=== PATIENT | female | born 1990 | race Two or more races ===

== ENCOUNTER 2019-02-13 21:40 | Emergency (ER) | payer MEDICAID, OTHER ==
[~2019-02-13] VITALS: Ht 152.4 cm; Wt 104.3 kg
[2019-02-14] MEDS ORDERED: IBUPROFEN 800 MG TAB PO ONE (02:00)
[2019-02-14] MEDS ORDERED: HYDROcodone-ACET 10/325MG TAB PO ONE (02:00)
[2019-02-14 02:14] VITALS: BP 134/68
== END 2019-02-14 02:25 | disposition home or self-care (01) ==
LOC: ER 21:40
DX: G44.209 Tension-type headache, unspecified, not intractable (principal)

== ENCOUNTER 2022-08-24 07:05 | Emergency (ER) | payer MEDICAID, OTHER ==
[~2022-08-24] VITALS: Ht 152.4 cm; Wt 108.0 kg
[2022-08-24 07:35] VITALS: BP 109/66
[2022-08-24 07:42] LABS: Basophils # (auto) 0.1 10 ^3/uL (0-0.2); Hemoglobin 13.2 g/dL (12.2-16.2); Monocytes # (auto) 0.5 10 ^3/uL (0-1.3)
[2022-08-24 07:44] LABS: Urine Bacteria FEW /hpf (None Seen); Urine Blood TRACE /uL (Negative); Urine Mucus FEW (None Seen); Urine WBC 2 /hpf (0 - 5)
[2022-08-24 07:45] LABS: Basophils % (auto) 0.5 % (0.0-2.0); Eosinophils # (auto) 0.1 10 ^3/uL (0-0.8); Eosinophils % (auto) 1.2 % (0.0-7.0); Hematocrit 37.5 % (36.0-46.0); Lymphocytes # (auto) 2.5 10 ^3/uL (0.4-5.4); Lymphocytes % (auto) 21.6 % (10.0-50.0); Mean Corpuscular Hemoglobin 27.3 pg (28.0-32.0); Mean Corpuscular Hgb Conc. 35.3 g/dL (32.0-36.0); Mean Corpuscular Volume 77.3 fL (80.0-100.0); Monocytes % (auto) 4.3 % (0.0-12.0); Neutrophils # (auto) 8.4 10 ^3/uL (1.6-8.6); Neutrophils % (auto) 72.4 % (37.0-80.0); Nucleated Red Blood Cells % 0.1 %; Red Blood Cells 4.85 10^6/uL (4.0-5.20); Red Cell Distribution Width 13.1 % (11.8-14.3); White Blood Cell 11.6 10^3/uL (4.4-10.8)
[2022-08-24] MEDS ORDERED: NITR-87 PO (08:41)
== END 2022-08-24 08:44 | disposition home or self-care (01) ==
LOC: ER 07:05
DX: O20.0 Threatened abortion (principal); O23.41 Unspecified infection of urinary tract in pregnancy, first trimester; N39.0 Urinary tract infection, site not specified; Z3A.13 13 weeks gestation of pregnancy
CPT/HCPCS: 36415; 76801; 81001; 84702; 85025

== ENCOUNTER 2022-09-29 15:52 | Emergency (ER) | payer MEDICAID ==
[~2022-09-29] VITALS: Ht 152.4 cm; Wt 107.0 kg
[~2022-09-29 15:52] MED LIST: NITR-87 PO
[2022-09-29 16:33] VITALS: BP 113/42
[2022-09-29 16:41] LABS: Basophils # (auto) 0 10 ^3/uL (0-0.2); Basophils % (auto) 0.4 % (0.0-2.0); Eosinophils # (auto) 0.3 10 ^3/uL (0-0.8); Eosinophils % (auto) 2.4 % (0.0-7.0); Hematocrit 37.1 % (36.0-46.0); Hemoglobin 12.7 g/dL (12.2-16.2); Lymphocytes # (auto) 2.7 10 ^3/uL (0.4-5.4); Lymphocytes % (auto) 24.2 % (10.0-50.0); Mean Corpuscular Hemoglobin 27.4 pg (28.0-32.0); Mean Corpuscular Hgb Conc. 34.3 g/dL (32.0-36.0); Mean Corpuscular Volume 79.7 fL (80.0-100.0); Monocytes # (auto) 0.7 10 ^3/uL (0-1.3); Monocytes % (auto) 6.3 % (0.0-12.0); Neutrophils # (auto) 7.3 10 ^3/uL (1.6-8.6); Neutrophils % (auto) 66.7 % (37.0-80.0); Nucleated Red Blood Cells % 0.1 %; Red Blood Cells 4.66 10^6/uL (4.0-5.20); Red Cell Distribution Width 13.5 % (11.8-14.3); White Blood Cell 10.9 10^3/uL (4.4-10.8)
[2022-09-29 17:00] LABS: Urine Bacteria NONE SEEN /hpf (None Seen); Urine Blood TRACE /uL (Negative); Urine Specific Gravity 1.015 (1.001-1.035); Urine WBC <1 /hpf (0 - 5)
[2022-09-29 17:03] LABS: Calcium 8.7 mg/dL (8.5-10.1); Potassium 3.5 mmol/L (3.5-5.1)
[2022-09-29 17:06] LABS: Bilirubin, Total 0.2 mg/dL (0.2-1.0); Total Protein 6.9 g/dL (6.4-8.2)
== END 2022-09-29 19:38 | disposition left against medical advice (07) ==
LOC: ER 15:52
DX: O46.92 Antepartum hemorrhage, unspecified, second trimester (principal); R10.2 Pelvic and perineal pain; Z3A.18 18 weeks gestation of pregnancy
CPT/HCPCS: 36415; 76805; 76817; 80053; 81001; 84702; 85025

== ENCOUNTER 2024-12-27 23:19 | Inpatient (IN) | payer MEDICAID ==
[~2024-12-27] VITALS: Ht 153 cm; Wt 109.0 kg
--- NOTE | 2024-12-28 01:51 | ED.PDOC ---
GI ASSESSMENT HPI Comments [age] year old female presents to the ED with a chief complaint of epigastric abdominal pain with associated radiation to the upper back with nausea,vomiting, and diarrhea. Patient states she reported eating pork 30 minutes prior to arriving to the ED, has since found no alleviating factors at this time. Patient notes she is Zepbound for weight loss, and has been on it for the past 4 months. Pt denies any fever, dysuria, sick contacts or other symptoms. Chief Complaint: Abdominal Pain Time Seen by MD: 01:48 Primary Care Provider: YOSEPH Reviewed Notes: Nurses Notes, Medications, Allergies Allergies: Coded Allergies: NO KNOWN ALLERGIES (Unverified , 01/30/13) Home Meds Active Scripts Nitrofurantoin Monohydrate Mac (Macrobid) 100 Mg Cap, 100 MG PO BID, #20 CAP Prov:CHIDI MAHONEY 08/24/22 Information Source: Patient Mode of Arrival: Ambulatory Timing: Minutes Duration: Since onset, Minutes Prehospital treatment: None Quality: None Vomitus: Watery Stool: Normal Severity: Moderate Recent: None Recent Hx of: None Pain Location: Diffuse Modifying Factors: Food Associated sign and symptoms: Nausea, Vomiting, Abdominal Pain Past Medical History PAST MEDICAL HISTORY: Denies 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 Moist mucous membranes.) Neck: Full Range of Motion, Normal Inspection Respiratory: Lungs Clear, No Accessory Muscle Use, No Respiratory Distress, Normal Breath Sounds Cardiovascular: No Edema, No JVD, Regular Rate/Rhythm Breast Exam: Deferred Gastrointestinal: Epigastric, Soft, Tenderness Genitalia: Deferred Pelvic: Deferred Rectal: Deferred Extremities: Normal inspection, Normal range of motion, Non-tender, No pedal edema Neurologic: Alert (Oriented x4), Normal Affect, Normal Mood, Other (Ambulatory) Cerebellar Function: NOT DONE Reflexes: NOT DONE Skin: Dry, Normal Color, Warm Lymphatic: NOT DONE Was a procedure done? Was a procedure done?: No GI differential Dx Differential Diagnosis: Appendicitis, Cholecystitis, Constipation, Gastritis/PUD, Gastroenteritis, Pancreatitis, UTI, Dehydration, Diabetes/ DKA, Electrolyte Imbalance, Food Poisoning, , Bacterial, Viral, Ischemic Bowel, Stress Ulcer, Kidney Stone X-Ray, Labs, Meds, VS Vital Signs Date Time Temp Pulse Resp B/P (MAP) Pulse Ox O2 Delivery O2 Flow Rate FiO2 12/28/24 04:17 69 18 130/78 12/28/24 03:34 97.4 62 18 129/70 (89) 98 97.4 12/28/24 03:34 62 18 12/27/24 23:21 98.3 97 20 137/72 96 98.3 Lab Test 12/28/24 03:27 12/28/24 02:23 12/28/24 01:10 Range/Units Troponin I High Sensitivity Pending < 3 L </=34 ng/L White Blood Count 16.1 H 4.4-10.8 10^3/uL Red Blood Count 5.43 H 4.0-5.20 10^6/uL Hemoglobin 14.9 12.2-16.2 g/dL Hematocrit 43.9 36.0-46.0 % Mean Corpuscular Volume 80.7 80.0-100.0 fL Mean Corpuscular Hemoglobin 27.4 L 28.0-32.0 pg Mean Corpuscular Hemoglobin Concent 33.9 32.0-36.0 g/dL Red Cell Distribution Width 14.2 11.8-14.3 % Platelet Count 307 140-450 10^3/uL Mean Platelet Volume 9.0 6.9-10.8 fL Neutrophils (%) (Auto) 84.7 H 37.0-80.0 % Lymphocytes (%) (Auto) 10.1 10.0-50.0 % Monocytes (%) (Auto) 4.8 0.0-12.0 % Eosinophils (%) (Auto) 0.1 0.0-7.0 % Basophils (%) (Auto) 0.3 0.0-2.0 % Neutrophils # (Auto) 13.6 H 1.6-8.6 10 ^3/uL Lymphocytes # (Auto) 1.6 0.4-5.4 10 ^3/uL Monocytes # (Auto) 0.8 0-1.3 10 ^3/uL Eosinophils # (Auto) 0 0-0.8 10 ^3/uL Basophils # (Auto) 0 0-0.2 10 ^3/uL Nucleated Red Blood Cells 0.0 % Sodium Level 140 136-145 mmol/L Potassium Level 4.0 3.5-5.1 mmol/L Chloride Level 105 98-107 mmol/L Carbon Dioxide Level 27 20-31 mmol/L Anion Gap 8 5-15 Blood Urea Nitrogen 8 L 9-23 mg/dL Creatinine 0.71 0.550-1.02 mg/dL Glomerular Filtration Rate Calc 114 >90 mL/min BUN/Creatinine Ratio 11.3 10.0-20.0 Serum Glucose 102 74-106 mg/dL Calcium Level 9.0 8.7-10.4 mg/dL Total Bilirubin 0.8 0.2-1.0 mg/dL Aspartate Amino Transferase (AST) 180 H 13-40 U/L Alanine Aminotransferase (ALT) 89 H 7-40 U/L Alkaline Phosphatase 154 H 46-116 U/L Total Protein 7.5 5.7-8.2 g/dL Albumin 4.5 3.2-4.8 g/dL Lipase 32 12-53 U/L Urine Color Yellow Yellow Urine Clarity Clear Clear Urine pH 5.5 5.0-9.0 Urine Specific [place] 1.027 1.001-1.035 Urine Protein Negative Negative Urine Ketones Negative Negative Urine Blood 1+ H Negative /uL Urine Nitrite Negative Negative Urine Bilirubin Negative Negative Urine Urobilinogen 4 H Negative mg/dL Urine Leukocyte Esterase Negative Negative /uL Urine RBC 21 0 - 4 /hpf Urine Microscopic WBC 2 0-5 /HPF Urine Squamous Epithelial Cells Few <5 /hpf Urine Bacteria Few H None Seen /hpf Urine Hyaline Casts Few 0 - 2 /lpf Urine Mucus Few None Seen Urine Glucose Normal Normal mg/dL Current Medications Medications (Trade) Dose Ordered Sig/Kristal Route Start Time Stop Time Status Last Admin Morphine Sulfate 4 mg ONCE ONCE IV 12/28/24 02:15 12/28/24 02:16 DC 12/28/24 04:17 Ondansetron HCl (Zofran) 4 mg ONCE ONCE IV 12/28/24 02:15 12/28/24 02:16 DC 12/28/24 03:51 Pantoprazole Sodium (Protonix) 40 mg ONCE ONCE IV 12/28/24 02:15 12/28/24 02:16 DC 12/28/24 03:52 PROCEDURE(s): ABPL - CT AB PEL WO CON-NO ORAL OR IV REASON: upper abd pain n/v/d ORDER NUMBER(s): [id number], ACCESSION NUMBER(s): [id number] Exam: CT CT AB PEL WO CON-NO ORAL OR IV History: upper abd pain n/v/d Comparison Study: None Technique: Multidetector spiral CT of the abdomen was performed from lung bases to pubic symphysis. Imaging was performed without IV contrast. Axial, coronal and sagittal multiplanar reformats were obtained from the axial data set by the technologist. Radiation Dose : 1. Abdomen/Pelvis: CTDIvol 25 mGy, DLP 16 19 mGy*cm. Findings: Evaluation of solid organs is limited due to lack of intravenous contrast use. Lung Bases: Unremarkable. Liver: 5 low-attenuation. Gallbladder and Biliary Tree: Unremarkable Pancreas: Mild atrophy. Spleen: Unremarkable Adrenal Glands: Unremarkable Kidneys/Ureters: No urinary stone or obstruction. Bladder: Decompressed without evident abnormality. Pelvic Organs: Unremarkable uterus and left ovary. Bowel: Normal caliber without wall thickening. No evidence of appendicitis. Vasculature: The visualized abdominal aorta is normal in size and caliber. Evaluation of abdominal and pelvic vessels is limited due to lack of intravenous contrast. Lymphadenopathy: No mesenteric, retroperitoneal or periportal lymphadenopathy. Peritoneum: Trace soft tissue stranding in the right lower quadrant along the inferior aspect of the cecum (axial images 79-80 3/121, sagittal image 71/168). No ascites, free air, or fluid collection. Abdominal Wall: Small fat containing umbilical hernia. Musculoskeletal: No aggressive focal bony lesions, acute fractures or disloc ation. IMPRESSION: 1. 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 Adjacent appendix, large bowel and right adnexa appear physiologic. 2. No other acute abdominal or pelvic findings. Radiation optimization: All CT scans at this facility use at least one of these dose optimization techniques: automated exposure control mA and/or kV adjustment per patient size (includes targeted exams where dose is matched to clinical indication) or iterative reconstruction. X-Ray, Labs, Meds, VS Comment 34-year-old female with no significant past medical history complaining of epigastric pain radiating to the back, associated with nausea and vomiting Vitals unremarkable Exam remarkable for epigastric tenderness to palpation Rhythm strip independently interpreted by me: Sinus rhythm, rate 97, no ectopy. CT abdomen and pelvis IMPRESSION: 1. 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 Adjacent appendix, large bowel and right adnexa appear physiologic. 2. No other acute abdominal or pelvic findings. CBC remarkable for WBC 16.1, CMP remarkable for AST 180, ALT 89, alkaline phos 154, lipase normal, troponin negative, UA abnormal indicating possible early/mild UTI Patient treated with the following in the ED: 1 L 0.9 normal saline IV bolus, morphine 4 mg IV, Zofran 4 mg IV, Protonix 40 mg IV, Zosyn 4.5 g IV On re-evaluation, patient states pain has improved. Vitals were stable. Plan is to admit the patient for pain control, IV antibiotics and possible GI/surgical evaluation. Time of 1ST Reevaluation: 02:18 Reevaluation 1ST: Unchanged Patient Education/Counseling: Diagnosis, Treatment, Need For Follow Up Family Education/Counseling: No Family Present SEPSIS Sepsis Screen Date sepsis recognized/suspect: Dec 27, 2024 Time Sepsis recognized/suspect: 2320 Recent Procedure: No On Antibiotic Therapy: No Respiratory Rate >20: No Heart Rate >90: No Temp<36 C (96.8 F) or >38.3 C: No SBP <90 or MAP <65 mmHG: No New Acute Mental Status Change: No Is the patient on CPAP, BIPAP,: No Physician Orders Saline Lock (12/27/24 23:29) Ct Ab Pel Wo Con-No Oral Or Iv (12/28/24 02:13) Test, Urine (12/28/24 02:13) Troponin-I Hs (12/28/24 03:13) Troponin-I Hs (12/28/24 05:13) Vital Signs Date Time Temp Pulse Resp B/P (MAP) Pulse Ox O2 Delivery O2 Flow Rate FiO2 12/28/24 04:17 69 18 130/78 12/28/24 03:34 97.4 62 18 129/70 (89) 98 97.4 12/28/24 03:34 62 18 12/27/24 23:21 98.3 97 20 137/72 96 98.3 Laboratory Tests Test 12/28/24 02:23 White Blood Count 16.1 10^3/uL (4.4-10.8) H Medications Medications Dose Ordered Sig/Kristal Route Start Time Stop Time Status Last Admin Dose Admin Morphine Sulfate 4 mg ONCE ONCE IV 12/28/24 02:15 12/28/24 02:16 DC 12/28/24 04:17 Ondansetron HCl 4 mg ONCE ONCE IV 12/28/24 02:15 12/28/24 02:16 DC 12/28/24 03:51 Pantoprazole Sodium 40 mg ONCE ONCE IV 12/28/24 02:15 12/28/24 02:16 DC 12/28/24 03:52 Departure 1 Departure Time of Disposition: 04:55 Impression: Primary Impression: Abdominal pain Additional Impressions: Nausea & vomiting Omental infarction UTI (urinary tract infection) Disposition: ADMITTED INPATIENT Admit to: Med Surg Condition: Guarded Critical Care Note Critical Care Time?: No Stability Stability form required: No Heart Score Heart Score: Heart Score Response (Comments) Value History N/A 0 EKG N/A 0 Age N/A 0 Risk Factors N/A 0 Troponin N/A 0 Total 0 I personally scribed for GLEN CARRILLO MD ([email or web address]) on 12/28/24 at 01:51. Electronically submitted by Don Bryan ([email or web address]). I personally scribed for GLEN CARRILLO MD ([email or web address]) on 12/28/24 at 02:16. Electronically submitted by Don Bryan ([email or web address]). GLEN CARRILLO MD Dec 28, 2024 01:51
[2024-12-28 02:08] LABS: Urine Protein, UAD Negative (Negative)
[2024-12-28 02:35] LABS: Hematocrit 43.9 % (36.0-46.0); Hemoglobin 14.9 g/dL (12.2-16.2); Mean Corpuscular Hemoglobin 27.4 pg (28.0-32.0); Mean Corpuscular Volume 80.7 fL (80.0-100.0); Nucleated Red Blood Cells % 0.0 %
[2024-12-28 02:58] LABS: Albumin 4.5 g/dL (3.2-4.8); Anion Gap 8 (5-15); BUN/Creatinine Ratio 11.3 (10.0-20.0); Calcium 9.0 mg/dL (8.7-10.4); Carbon Dioxide 27 mmol/L (20-31); Chloride 105 mmol/L (98-107); Glucose 102 mg/dL (74-106); Lipase 32 U/L (12-53); Potassium 4.0 mmol/L (3.5-5.1); Sodium 140 mmol/L (136-145); Total Protein 7.5 g/dL (5.7-8.2)
[2024-12-28 02:59] LABS: Bilirubin, Total 0.8 mg/dL (0.2-1.0)
[2024-12-28 03:08] LABS: Alanine Aminotransferase 89 U/L (7-40); Alkaline Phosphatase 154 U/L (46-116); Blood Urea Nitrogen 8 mg/dL (9-23)
[2024-12-28] MEDS: ONDANSETRON HCL 4 MG/2 ML VIAL IV ONE (03:51)
[2024-12-28] MEDS: PANTOPRAZOLE 40 MG/10 ML VIAL INJ IV ONE (03:52)
[2024-12-28] MEDS: MORPHINE SULFATE 4 MG/ML SYR/VIAL IV ONE (04:17)
--- NOTE | 2024-12-28 04:37 | DVH ---
Exam: CT CT AB PEL WO CON-NO ORAL OR IV History: upper abd pain n/v/d Comparison Study: None Technique: Multidetector spiral CT of the abdomen was performed from lung bases to pubic symphysis. I maging was performed without IV contrast. Axial, coronal and sagittal multiplanar reformats were obta ined from the axial data set by the technologist. Radiation Dose : 1. Abdomen/Pelvis: CTDIvol 25 mGy, DLP 16 19 mGy*cm. Findings: Evaluation of solid organs is limited due to lack of intravenous contrast use. Lung Bases: Unremarkable. Liver: 5 low-attenuation. Gallbladder and Biliary Tree: Unremarkable Pancreas: Mild atrophy. Spleen: Unremarkable Adrenal Glands: Unremarkable Kidneys/Ureters: No urinary stone or obstruction. Bladder: Decompressed without evident abnormality. Pelvic Organs: Unremarkable uterus and left ovary. Bowel: Normal caliber without wall thickening. No evidence of appendicitis. Vasculature: The visualized abdominal aorta is normal in size and caliber. Evaluation of abdominal a nd pelvic vessels is limited due to lack of intravenous contrast. Lymphadenopathy: No mesenteric, retroperitoneal or periportal lymphadenopathy. Peritoneum: Trace soft tissue stranding in the right lower quadrant along the inferior aspect of the cecum (axial images 79-80 3/121, sagittal image 71/168). No ascites, free air, or fluid collection. Abdominal Wall: Small fat containing umbilical hernia. Musculoskeletal: No aggressive focal bony lesions, acute fractures or dislocation. IMPRESSION: 1. Trace inflammatory stranding in the right pelvis surrounding peritoneal fat suggestive of intraper itoneal focal fat infarction, likely omental infarct. Adjacent appendix, large bowel and right adnexa appear physiologic. 2. No other acute abdominal or pelvic findings. Radiation optimization: All CT scans at this facility use at least one of these dose optimization leonides hniques: automated exposure control mA and/or kV adjustment per patient size (includes targeted exam s where dose is matched to clinical indication) or iterative reconstruction.
[2024-12-28] MEDS: SODIUM CHLORIDE 0.9% 1,000 ML IV ONE (04:54)
[2024-12-28] MEDS ORDERED: IBUPROFEN 600 MG TAB PO PRN (05:30)
[2024-12-28] MEDS ORDERED: ONDANSETRON HCL 4 MG/2 ML VIAL IV PRN (05:30)
[2024-12-28] MEDS ORDERED: MORPHINE SULFATE INJ 2 MG/ml SYRG IV PRN ×2 (05:30→07:30)
[2024-12-28] MEDS: PIPERACILLIN-TAZO 4.5GM 100 ML IV ONE (05:54)
[2024-12-28 07:07] LABS: Hematocrit 41.5 % (36.0-46.0); Hemoglobin 14.1 g/dL (12.2-16.2); Mean Corpuscular Hemoglobin 27.4 pg (28.0-32.0); Mean Corpuscular Volume 80.9 fL (80.0-100.0); Nucleated Red Blood Cells % 0.0 %
[2024-12-28 07:23] LABS: Anion Gap 9 (5-15); BUN/Creatinine Ratio 8.8 (10.0-20.0); Carbon Dioxide 25 mmol/L (20-31); Chloride 106 mmol/L (98-107); Glucose 101 mg/dL (74-106); Potassium 3.7 mmol/L (3.5-5.1); Sodium 140 mmol/L (136-145); Total Protein 7.3 g/dL (5.7-8.2)
[2024-12-28 07:24] LABS: Alanine Aminotransferase 108 U/L (7-40); Albumin 4.5 g/dL (3.2-4.8); Alkaline Phosphatase 154 U/L (46-116); Bilirubin, Total 0.9 mg/dL (0.2-1.0); Blood Urea Nitrogen 6 mg/dL (9-23); Calcium 8.3 mg/dL (8.7-10.4)
[2024-12-28] MEDS ORDERED: NITROGLYCERIN 0.4 MG SL TAB SL PRN (07:30)
[2024-12-28] MEDS: SODIUM CHLORIDE 0.9% 1,000 ML IV SCH (07:32)
--- NOTE | 2024-12-28 07:47 | DVHHP2 ---
History of Present Illness Reason for Visit: Acute abdominal pain History of Present Illness The patient is a 34-year-old female who denies past medical history presented to [facility] with complaint of abdominal pain. Patient reports symptoms progressively get worse with epigastric abdominal pain, radiating to he r upper back, rating 7/10 numeric scale, associated with nausea, vomiting, diarrhea, getting worse that prompted this visit. Patient was seen and evaluated in the ED, laboratory data shows WBC 16.1, platelets 307, sodium 140, potassium 4.0, BUN 8, creatinine 0.71, GFR 114, glucose 102, calcium 9.0, lipase 32, troponin three, AST 180, ALT 89, blood pressure 130/78, heart rate 69, te mperature 97.6 F, O2 saturation 98% on room air. 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 Patient was started on IV antibiotic regimen Zosyn, given morphine sulfate 4 mg IV x1, IV Zofran, please see medication orders section in the computer. On my assessment, patient denied chest pain, no headache, no dizziness, no shortness of breath, no abdominal pain, nausea or vomiting at this moment, no fever, no chills. Patient was admitted for further evaluation and medical management. Past Medical History Denies past medical history Past Surgical History Family History Reviewed, noncontributory to the management of this case. Past Social History The patient lives at home, denies smoking, alcohol or illicit drugs abuse. Review of Systems Constitutional: No: Fever, Chills, Sweats, Weakness, Malaise, Other Eyes: No: Pain, Vision change, Conjunctivae inflammation, Eyelid inflammation, Other, Redness ENT: No: Ear pain, Ear discharge, Nose pain, Nose discharge, Nose congestion, Mouth pain, Mouth swelling, Throat pain, Throat swelling, Other Respiratory: No: Cough, Dry, Shortness of breath, SOB with excertion, Wheezing, Hemoptysis, Pleuritic Pain, Sputum, Wheezing, Other Cardiovascular: No: Chest Pain, Palpitations, Orthopnea, Paroxysmal Noc. Dyspnea, Edema, Lt Headedness, Other Gastrointestinal: Nausea, Abdominal Pain, Diarrhea; No: Constipation, Melena, Hematochezia, Other Genitourinary: No Dysuria, No Frequency, No Incontinence, No Hematuria, No Retention, No Other Musculoskeletal: No: other, neck pain, shoulder pain, arm pain, back pain, hand pain, leg pain, foot pain Skin: No: Rash, Lesions, Jaundice, Bruising, Other Neurological: No: Weakness, Numbness, Incoordination, Change in speech, Confusion, Seizures, Other Allergies: Coded Allergies: NO KNOWN ALLERGIES (Unverified , 01/30/13) Medications Current Medications Medications Dose Ordered Sig/Kristal Route Start Time Stop Time Status Last Admin Dose Admin Pantoprazole Sodium 40 mg DAILY IV 12/28/24 10:00 Piperacillin Sod/ Tazobactam Sod 100 ml @ 25 mls/hr Q8H IV 12/28/24 13:00 Ibuprofen 600 mg Q6HP PRN PO 12/28/24 05:30 Sodium Chloride 1,000 ml @ 60 mls/hr [id number] IV 12/28/24 05:30 Acetaminophen/ Hydrocodone Bitart 1 tab Q4HP PRN PO 12/28/24 05:30 Ondansetron HCl 4 mg Q4HP PRN IV 12/28/24 05:30 Docusate Sodium 100 mg BIDPRN PRN PO 12/28/24 05:30 Morphine Sulfate 2 mg Q4HPRN PRN IV 12/28/24 05:30 Exam Vital Signs Vital Signs Date Time Temp Pulse Resp B/P (MAP) Pulse Ox O2 Delivery O2 Flow Rate FiO2 12/28/24 04:17 69 18 130/78 12/28/24 03:34 97.4 98 97.4 General Appearance: Alert, Oriented X3, Cooperative, No acute distress HEENT: Atraumatic, PERRLA, EOMI, Mucous membr. moist/pink Respiratory: Clear to auscultation, Normal air movement Cardiovascular: Regular rate, Normal S1, Normal S2, No murmurs Abdominal: Normal bowel sounds, Soft, No hepatospenomegaly, No masses, Other (Reports tenderness) Extremities: No clubbing, No cyanosis, No edema, Normal pulses, No tenderness/swelling Skin: No rashes, No breakdown, No significant lesion Neuro: Normal gait, Normal speech, Strength at 5/5 X4 ext, Normal tone, Sensation intact, Cranial nerves 3-12 NL, Reflexes 2+ Psych/Mental Status: Mental status NL, Mood NL Labs/Xrays Labs Test 12/28/24 06:36 12/28/24 03:27 12/28/24 02:23 12/28/24 01:10 Range/Units White Blood Count 11.3 #H 4.4-10.8 10^3/uL Red Blood Count 5.13 4.0-5.20 10^6/uL Hemoglobin 14.1 12.2-16.2 g/dL Hematocrit 41.5 36.0-46.0 % Mean Corpuscular Volume 80.9 80.0-100.0 fL Mean Corpuscular Hemoglobin 27.4 L 28.0-32.0 pg Mean Corpuscular Hemoglobin Concent 33.9 32.0-36.0 g/dL Red Cell Distribution Width 14.2 11.8-14.3 % Platelet Count 292 140-450 10^3/uL Mean Platelet Volume 9.4 6.9-10.8 fL Neutrophils (%) (Auto) 76.5 37.0-80.0 % Lymphocytes (%) (Auto) 18.4 10.0-50.0 % Monocytes (%) (Auto) 4.6 0.0-12.0 % Eosinophils (%) (Auto) 0.2 0.0-7.0 % Basophils (%) (Auto) 0.3 0.0-2.0 % Neutrophils # (Auto) 8.7 H 1.6-8.6 10 ^3/uL Lymphocytes # (Auto) 2.1 0.4-5.4 10 ^3/uL Monocytes # (Auto) 0.5 0-1.3 10 ^3/uL Eosinophils # (Auto) 0 0-0.8 10 ^3/uL Basophils # (Auto) 0 0-0.2 10 ^3/uL Nucleated Red Blood Cells 0.0 % Troponin I High Sensitivity < 3 L </=34 ng/L Lipase 32 12-53 U/L Urine Color Yellow Yellow Urine Clarity Clear Clear Urine pH 5.5 5.0-9.0 Urine Specific [place] 1.027 1.001-1.035 Urine Protein Negative Negative Urine Ketones Negative Negative Urine Blood 1+ H Negative /uL Urine Nitrite Negative Negative Urine Bilirubin Negative Negative Urine Urobilinogen 4 H Negative mg/dL Urine Leukocyte Esterase Negative Negative /uL Urine RBC 21 0 - 4 /hpf Urine Microscopic WBC 2 0-5 /HPF Urine Squamous Epithelial Cells Few <5 /hpf Urine Bacteria Few H None Seen /hpf Urine Hyaline Casts Few 0 - 2 /lpf Urine Mucus Few None Seen Urine Glucose Normal Normal mg/dL Urine Test Negative Negative PATIENT: THI MURRAY ACCT: [id number] UNIT: [id number] : 1990 LOC: ER ROOM / BED: / AGE / SEX: 34 / F ADM STATUS: REG ER SERVICE 0213 ORDERING PHYSICIAN: GLEN CARRILLO MD PROCEDURE(s): ABPL - CT AB PEL WO CON-NO ORAL OR IV REASON: upper abd pain n/v/d ORDER NUMBER(s): [id number], ACCESSION NUMBER(s): [id number] Exam: CT CT AB PEL WO CON-NO ORAL OR IV History: upper abd pain n/v/d Comparison Study: None Technique: Multidetector spiral CT of the abdomen was performed from lung bases to pubic symphysis. Imaging was performed without IV contrast. Axial, coronal and sagittal multiplanar reformats were obtained from the axial data set by the technologist. Radiation Dose:1. Abdomen/Pelvis: CTDIvol 25 mGy, DLP 16 19 mGy*cm. Findings: Evaluation of solid organs is limited due to lack of intravenous contrast use. Lung Bases: Unremarkable. Liver: 5 low-attenuation. Gallbladder and Biliary Tree: Unremarkable Pancreas: Mild atrophy. Spleen: Unremarkable Adrenal Glands: Unremarkable Kidneys/Ureters: No urinary stone or obstruction. Bladder: Decompressed without evident abnormality. Pelvic Organs: Unremarkable uterus and left ovary. Bowel: Normal caliber without wall thickening. No evidence of appendicitis. Vasculature: The visualized abdominal aorta is normal in size and caliber. Evaluation of abdominal and pelvic vessels is limited due to lack of intravenous contrast. Lymphadenopathy: No mesenteric, retroperitoneal or periportal lymphadenopathy. Peritoneum: Trace soft tissue stranding in the right lower quadrant along the inferior aspect of the cecum (axial images 79-80 3/121, sagittal image 71/168). No ascites, free air, or fluid collection. Abdominal Wall: Small fat containing umbilical hernia. Musculoskeletal: No aggressive focal bony lesions, acute fractures or dislocation. IMPRESSION: 1. 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 Adjacent appendix, large bowel and right adnexa appear physiologic. 2. No other acute abdominal or pelvic findings. SEPSIS Sepsis Screen Date sepsis recognized/suspect: Dec 27, 2024 Time Sepsis recognized/suspect: 2320 Recent Procedure: No On Antibiotic Therapy: No Respiratory Rate >20: No Heart Rate >90: No Temp<36 C (96.8 F) or >38.3 C: No SBP <90 or MAP <65 mmHG: No New Acute Mental Status Change: No Is the patient on CPAP, BIPAP,: No Physician Orders Saline Lock (12/27/24 23:29) Ct Ab Pel Wo Con-No Oral Or Iv (12/28/24 02:13) Comprehensive Metabolic Panel (12/28/24 05:21) Pantoprazole (Protonix) (12/28/24 10:00) Piperacillin-Tazob 3.375gm (Zosyn 3.375g (12/28/24 13:00) Ibuprofen Tablet (Motrin Tablet) (12/28/24 05:30) Allergies (12/28/24 05:21) Code Status (12/28/24 05:21) Sodium Chloride 0.9% (12/28/24 05:30) Oxygen Per Hour (12/28/24 05:21) Hydrocodone-Acet 5/325mg Tab ([place] 5/32 (12/28/24 05:30) Ondansetron Hcl (Zofran) (12/28/24 05:30) Docusate Sodium Capsule (Colace Capsule) (12/28/24 05:30) Complete Blood Count (12/29/24 04:00) Comprehensive Metabolic Panel (12/29/24 04:00) Condition: Serious (12/28/24 05:21) Clear Liq Diet (12/28/24 Breakfast) Bedrest With Bathroom Privileg (12/28/24 05:21) Morphine Sulfate Injection (12/28/24 05:30) Sequential Compression Device (12/28/24 ) Admit (12/28/24 07:20) Nitroglycerin Sublingual (Ntrostat Subli (12/28/24 07:30) Morphine Sulfate Injection (12/28/24 07:30) Notify Of Changes From Base (12/28/24 07:20) Emergency Dysrhythmia Protocol (12/28/24 07:20) Oxygen By Nasal Cannula (12/28/24 07:20) Vital Signs Date Time Temp Pulse Resp B/P (MAP) Pulse Ox O2 Delivery O2 Flow Rate FiO2 12/28/24 04:17 69 18 130/78 12/28/24 03:34 97.4 62 18 129/70 (89) 98 97.4 12/28/24 03:34 62 18 Laboratory Tests Test 12/28/24 02:23 12/28/24 06:36 White Blood Count 16.1 10^3/uL (4.4-10.8) H 11.3 10^3/uL (4.4-10.8) #H Medications Medications Dose Ordered Sig/Kristal Route Start Time Stop Time Status Last Admin Dose Admin Morphine Sulfate 4 mg ONCE ONCE IV 12/28/24 02:15 12/28/24 02:16 DC 12/28/24 04:17 4 MG Ondansetron HCl 4 mg ONCE ONCE IV 12/28/24 02:15 12/28/24 02:16 DC 12/28/24 03:51 4 MG Pantoprazole Sodium 40 mg ONCE ONCE IV 12/28/24 02:15 12/28/24 02:16 DC 12/28/24 03:52 40 MG Piperacillin Sod/ Tazobactam Sod 100 ml @ 100 mls/hr ONCE ONCE IV 12/28/24 05:00 12/28/24 05:59 DC 12/28/24 05:54 100 MLS/HR Sodium Chloride 1,000 ml @ 1,000 mls/hr Q1H ONCE IV 12/28/24 02:15 12/28/24 03:14 DC 12/28/24 04:54 1,000 MLS/HR Assessment/Plan Assessment/Plan Abdominal pain Nausea & vomiting Omental infarction Leukocytosis, unspecified Elevated liver enzymes UTI (urinary tract infection) Plan 1. Admit to med surge unit 2. Breathing treatment 3. Pain control management 4. IV antibiotic management 5. Management of fluids and electrolytes 6. Consultation for hospitalist 7. Diagnostic test abdomen/pelvis CT 8. DVT prophylaxis on SCDs 9. Repeat labs CBC, CMP in a.m. 10. Continue with current medical management 11. Treatment plan discussed with patient and RN. Patient verbalized understanding. Plan discussed with: Patient, Other (RN) My Orders Orders - JANETH ELLER DNP Procedure Category Date Status Time Comprehensive LAB 12/28/24 In Process Metabolic Panel 05:21 Pantoprazole PHA 12/28/24 In Process (Protonix) 10:00 Piperacillin-Tazob PHA 12/28/24 In Process 3.375gm (Zosyn 3.375g 13:00 Ibuprofen Tablet PHA 12/28/24 In Process (Motrin Tablet) 05:30 Allergies [place] 12/28/24 In Process 05:21 Code Status CODE 12/28/24 Transmitted 05:21 Sodium Chloride 0.9% PHA 12/28/24 In Process 05:30 Oxygen Per Hour RT 12/28/24 Transmitted 05:21 Hydrocodone-Acet PHA 12/28/24 In Process 5/325mg Tab ([place] 05:30 Ondansetron Hcl PHA 12/28/24 In Process (Zofran) 05:30 Docusate Sodium PHA 12/28/24 In Process Capsule (Colace 05:30 Complete Blood Count LAB 12/29/24 Verified 04:00 Comprehensive LAB 12/29/24 Verified Metabolic Panel 04:00 Condition: Serious [place] 12/28/24 In Process 05:21 Clear Liq Diet DIET 12/28/24 Transmitted Breakfast Bedrest With Bathroom [place] 12/28/24 In Process Privileg 05:21 Morphine Sulfate PHA 12/28/24 In Process Injection 05:30 Sequential [place] 12/28/24 In Process Compression Device Admit ADMIT 12/28/24 Transmitted 07:20 Nitroglycerin PHA 12/28/24 Transmitted Sublingual (Ntrostat 07:30 Morphine Sulfate PHA 12/28/24 Transmitted Injection 07:30 Notify Md Of Changes [place] 12/28/24 Transmitted From Base 07:20 Emergency Dysrhythmia [place] 12/28/24 Transmitted Protocol 07:20 Oxygen By Nasal RT 12/28/24 Transmitted Cannula 07:20 Problem List: (1) Abdominal pain (2) Nausea & vomiting (3) Omental infarction (4) Elevated liver enzymes (5) Leukocytosis, unspecified (6) UTI (urinary tract infection) Date of Service: Dec 28, 2024 Billing Provider: JANETH ELLER DNP Common Visit Codes: [id number] INP/OBS CARE (HIGH) JANETH ELLER DNP Dec 28, 2024 07:46
[2024-12-28] MEDS: PANTOPRAZOLE 40 MG/10 ML VIAL INJ IV SCH (08:48)
[2024-12-28 08:54] VITALS: BP 107/57; PULSE 61; RESP 17; TEMP 97.7; O2SAT 99
[2024-12-28 13:00] VITALS: BP 130/57; PULSE 65; RESP 17; TEMP 98.6; O2SAT 100
[2024-12-28] MEDS: PIPERACILLIN-TAZOB 3.375GM 100 ML IV SCH (13:00)
--- NOTE | 2024-12-28 13:11 | DVH ---
INDICATION: elevated LFTs TECHNIQUE: Multiple real-time sonographic images were obtained of the right upper quadrant. COMPARISON: None FINDINGS: The liver demonstrates heterogeneous echotexture without focal mass lesions. The liver tal ures 16 cm. There is no intrahepatic or extrahepatic ductal dilatation. The common duct measures 0 .6 mm. Gallstones . The gallbladder wall measures 1.5mm and is within normal limits. The right kidney measures 9 cm. The right kidney is normal in contour, size, and shape. The echoge nicity is normal. There is no hydronephrosis. The pancreas is not well visualized due to overlying bowel gas. IMPRESSION: Gallstones / Gallbladder sludge
[2024-12-28 15:34] LABS: Amphetamine Screen, Urine Neg (NEGATIVE); Barbiturate Scree,Urine Neg (NEGATIVE); Benzodiazephine Screen, Urine Neg (NEGATIVE); Cannabinoid Screen, Urine Neg (NEGATIVE); Cocaine Screen, Urine Neg (NEGATIVE); Opiate Scree,Urine Neg (NEGATIVE); Phencyclidine Screen, Urine Neg (NEGATIVE)
[2024-12-28 17:00] VITALS: BP 113/54; PULSE 60; RESP 18; TEMP 98.4; O2SAT 100
[2024-12-28 18:20] VITALS: BP 114/65; PULSE 70; RESP 19; TEMP 97; O2SAT 100
--- NOTE | 2024-12-28 19:32 | DVHPN2 ---
Subjective Cross covering for [facility] hospitalist today. Patient is admitted this morning for abdominal pain. Currently she feels better. Says her pain has significantly improved. Patient apparently recently started on Zepbound for weight loss and lost about 15 lb. Changes from previous H/P or p: No Changes Eyes: No Pain, No Vision change, No Conjunctivae inflammation, No Eyelid inflammation, No Other, No Redness ENT: No Ear pain, No Ear discharge, No Nose pain, No Nose discharge, No Nose congestion, No Mouth pain, No Mouth swelling, No Throat pain, No Throat swelling, No Other Cardiovascular: No Chest Pain, No Palpitations, No Orthopnea, No Paroxysmal Noc. Dyspnea, No Edema, No Lt Headedness, No Other Respiratory: No Cough, No Dry, No Shortness of breath, No SOB with excertion, No Wheezing, No Hemoptysis, No Pleuritic Pain, No Sputum, No Other Gastrointestinal: Nausea, Abdominal Pain, Diarrhea; No Constipation, No Melena, No Hematochezia, No Other Genitourinary: No Dysuria, No Frequency, No Incontinence, No Hematuria, No Retention, No Other Musculoskeletal: No other, No neck pain, No shoulder pain, No arm pain, No back pain, No hand pain, No leg pain, No foot pain Skin: No Rash, No Lesions, No Jaundice, No Bruising, No Other Objective Vitals Vital Signs Date Time Temp Pulse Resp B/P (MAP) Pulse Ox O2 Delivery O2 Flow Rate FiO2 12/28/24 18:32 Room Air* 0 21 12/28/24 18:20 97.0 70 19 114/65 (81) 100 97.0 Exam Alert awake oriented x3. HEENT neck supple no JVD. Heart regular rate and rhythm S1 and S2. Lungs fair air movement without rales wheezes. Abdomen soft obese nontender positive bowel sounds. Extremities no edema positive pulses. Medications Current Medications Medications Dose Ordered Sig/Kristal Route Start Time Stop Time Status Last Admin Dose Admin Pantoprazole Sodium 40 mg DAILY IV 12/28/24 10:00 12/28/24 08:48 40 MG Piperacillin Sod/ Tazobactam Sod 100 ml @ 25 mls/hr Q8H IV 12/28/24 13:00 12/28/24 13:00 25 MLS/HR Ibuprofen 600 mg Q6HP PRN PO 12/28/24 05:30 Sodium Chloride 1,000 ml @ 60 mls/hr [id number] IV 12/28/24 05:30 Acetaminophen/ Hydrocodone Bitart 1 tab Q4HP PRN PO 12/28/24 05:30 Ondansetron HCl 4 mg Q4HP PRN IV 12/28/24 05:30 Docusate Sodium 100 mg BIDPRN PRN PO 12/28/24 05:30 Morphine Sulfate 2 mg Q4HPRN PRN IV 12/28/24 05:30 Nitroglycerin 0.4 mg Q5MINP PRN SL 12/28/24 07:30 Morphine Sulfate 2 mg Q30M PRN IV 12/28/24 07:30 Laboratory Results Laboratory Tests 12/28/24 06:36 Chemistry Test 12/28/24 02:23 12/28/24 06:36 Albumin 4.5 g/dL (3.2-4.8) 4.5 g/dL (3.2-4.8) Calcium Level 9.0 mg/dL (8.7-10.4) 8.3 mg/dL (8.7-10.4) L Total Protein 7.5 g/dL (5.7-8.2) 7.3 g/dL (5.7-8.2) Lipid panel Test 12/28/24 02:23 Lipase 32 U/L (12-53) LFT Test 12/28/24 02:23 12/28/24 06:36 Alanine Aminotransferase (ALT) 89 U/L (7-40) H 108 U/L (7-40) H Alkaline Phosphatase 154 U/L (46-116) H 154 U/L (46-116) H Aspartate Amino Transferase (AST) 180 U/L (13-40) H 158 U/L (13-40) H Total Bilirubin 0.8 mg/dL (0.2-1.0) 0.9 mg/dL (0.2-1.0) Urinalysis Test 12/28/24 01:10 Urine Color Yellow (Yellow) Urine Clarity Clear (Clear) Urine pH 5.5 (5.0-9.0) Urine Specific [place] 1.027 (1.001-1.035) Urine Protein Negative (Negative) Urine Ketones Negative (Negative) Urine Blood 1+ /uL (Negative) H Urine Nitrite Negative (Negative) Urine Bilirubin Negative (Negative) Urine Urobilinogen 4 mg/dL (Negative) H Urine Leukocyte Esterase Negative /uL (Negative) Urine RBC 21 /hpf (0 - 4) Urine Microscopic WBC 2 /HPF (0-5) Urine Squamous Epithelial Cells Few /hpf (<5) Urine Bacteria Few /hpf (None Seen) H Urine Hyaline Casts Few /lpf (0 - 2) Urine Mucus Few (None Seen) Urine Glucose Normal mg/dL (Normal) Urine Test Negative (Negative) Assessment/Plan Assessment/Plan I have ordered liver ultrasound given elevated LFTs. Possible nonalcoholic steatohepatitis. We will check hepatitis panel as well. Given her pain is resolved we will advance her diet to soft diet. Follow up labs in the morning. Otherwise continue rest of supportive care and treatment. Further clinical management per clinical course. Discussed with the patient earlier today regarding care plan and when I evaluated her in the ER holding area. Plan discussed with: Patient, Other My Orders Orders - NATIVIDAD RODRIGUEZ MD Procedure Category Date Status Time LIVER US 12/28/24 Resulted 11:33 Acute Hepatitis Panel LAB 12/28/24 In Process 11:35 Soft Diet DIET 12/28/24 Transmitted Dinner Problem List: (1) Abdominal pain (2) Leukocytosis, unspecified (3) Elevated liver enzymes (4) Omental infarction Date of Service: Dec 28, 2024 Billing Provider: NATIVIDAD RODRIGUEZ MD Common Visit Codes: [id number] INP/OBS CARE(LOW) NATIVIDAD RODRIGUEZ MD Dec 28, 2024 19:32
[2024-12-28 21:00] VITALS: BP 95/60; PULSE 74; RESP 19; TEMP 98.4; O2SAT 96
[2024-12-29 01:00] VITALS: BP 108/46; PULSE 85; RESP 18; TEMP 98.4; O2SAT 96
[2024-12-29 05:00] VITALS: BP 124/54; PULSE 68; RESP 17; TEMP 97.6; O2SAT 97
[2024-12-29 07:27] LABS: Hematocrit 37.6 % (36.0-46.0); Hemoglobin 13.1 g/dL (12.2-16.2); Mean Corpuscular Hemoglobin 28.2 pg (28.0-32.0); Mean Corpuscular Volume 80.9 fL (80.0-100.0); Nucleated Red Blood Cells % 0.0 %
[2024-12-29 07:44] LABS: Alanine Aminotransferase 57 U/L (7-40); Albumin 3.6 g/dL (3.2-4.8); Alkaline Phosphatase 105 U/L (46-116); Anion Gap 10 (5-15); BUN/Creatinine Ratio 10.1 (10.0-20.0); Bilirubin, Total 0.6 mg/dL (0.2-1.0); Blood Urea Nitrogen 8 mg/dL (9-23); Calcium 8.2 mg/dL (8.7-10.4); Carbon Dioxide 26 mmol/L (20-31); Chloride 105 mmol/L (98-107); Glucose 91 mg/dL (74-106); Potassium 4.0 mmol/L (3.5-5.1); Sodium 141 mmol/L (136-145); Total Protein 6.1 g/dL (5.7-8.2)
[2024-12-29 08:00] VITALS: PULSE 72; RESP 18
[2024-12-29 08:44] VITALS: BP 107/51; PULSE 72; RESP 18; TEMP 97.8; O2SAT 97
[2024-12-29] MEDS: HYDROcodone-ACET 5/325MG TAB PO PRN (09:37)
[2024-12-29 11:16] LABS: Hepatitis B Surface Antigen Negative (Negative); Hepatitis C Antibody Negative (Negative)
[2024-12-29] MEDS: DOCUSATE SOD 100 MG CAP PO PRN (12:54)
[2024-12-29 13:00] VITALS: BP 118/62; PULSE 56; RESP 20; TEMP 98.4; O2SAT 99
[2024-12-29] MEDS ORDERED: CEPH250C PO (13:57)
[2024-12-29] MEDS ORDERED: IBUP-1454 PO (13:57)
[2024-12-29] MEDS ORDERED: METR-344 PO (13:57)
--- NOTE | 2024-12-29 13:58 | DVHDS2 ---
Discharge Summary Date of Admission Dec 28, 2024 at 07:20 Date of Discharge: Dec 29, 2024 Labs/Diagnostic Data: Laboratory Results Test 12/29/24 06:17 12/28/24 06:36 12/28/24 03:27 12/28/24 02:23 White Blood Count 10.0 10^3/uL (4.4-10.8) Red Blood Count 4.64 10^6/uL (4.0-5.20) Hemoglobin 13.1 g/dL (12.2-16.2) Hematocrit 37.6 % (36.0-46.0) Mean Corpuscular Volume 80.9 fL (80.0-100.0) Mean Corpuscular Hemoglobin 28.2 pg (28.0-32.0) Mean Corpuscular Hemoglobin Concent 34.8 g/dL (32.0-36.0) Red Cell Distribution Width 14.2 % (11.8-14.3) Platelet Count 265 10^3/uL (140-450) Mean Platelet Volume 9.4 fL (6.9-10.8) Neutrophils (%) (Auto) 58.2 % (37.0-80.0) Lymphocytes (%) (Auto) 31.5 % (10.0-50.0) Monocytes (%) (Auto) 6.5 % (0.0-12.0) Eosinophils (%) (Auto) 3.4 % (0.0-7.0) Basophils (%) (Auto) 0.4 % (0.0-2.0) Neutrophils # (Auto) 5.9 10 ^3/uL (1.6-8.6) Lymphocytes # (Auto) 3.2 10 ^3/uL (0.4-5.4) Monocytes # (Auto) 0.7 10 ^3/uL (0-1.3) Eosinophils # (Auto) 0.3 10 ^3/uL (0-0.8) Basophils # (Auto) 0 10 ^3/uL (0-0.2) Nucleated Red Blood Cells 0.0 % Sodium Level 141 mmol/L (136-145) Potassium Level 4.0 mmol/L (3.5-5.1) Chloride Level 105 mmol/L (98-107) Carbon Dioxide Level 26 mmol/L (20-31) Anion Gap 10 (5-15) Blood Urea Nitrogen 8 mg/dL (9-23) Creatinine 0.79 mg/dL (0.550-1.02) Glomerular Filtration Rate Calc 101 mL/min (>90) BUN/Creatinine Ratio 10.1 (10.0-20.0) Serum Glucose 91 mg/dL (74-106) Calcium Level 8.2 mg/dL (8.7-10.4) Total Bilirubin 0.6 mg/dL (0.2-1.0) Aspartate Amino Transferase (AST) 37 U/L (13-40) Alanine Aminotransferase (ALT) 57 U/L (7-40) Alkaline Phosphatase 105 U/L (46-116) Total Protein 6.1 g/dL (5.7-8.2) Albumin 3.6 g/dL (3.2-4.8) Hepatitis A IgM Antibody Negative Hepatitis B Surface Antigen Negative (Negative) Hepatitis B Core IgM Antibody Negative (Negative) Hepatitis C Antibody Negative (Negative) Troponin I High Sensitivity < 3 ng/L (</=34) Lipase 32 U/L (12-53) Test 12/28/24 01:10 Urine Color Yellow (Yellow) Urine Clarity Clear (Clear) Urine pH 5.5 (5.0-9.0) Urine Specific [place] 1.027 (1.001-1.035) Urine Protein Negative (Negative) Urine Ketones Negative (Negative) Urine Blood 1+ /uL (Negative) Urine Nitrite Negative (Negative) Urine Bilirubin Negative (Negative) Urine Urobilinogen 4 mg/dL (Negative) Urine Leukocyte Esterase Negative /uL (Negative) Urine RBC 21 /hpf (0 - 4) Urine Microscopic WBC 2 /HPF (0-5) Urine Squamous Epithelial Cells Few /hpf (<5) Urine Bacteria Few /hpf (None Seen) Urine Hyaline Casts Few /lpf (0 - 2) Urine Mucus Few (None Seen) Urine Glucose Normal mg/dL (Normal) Urine Test Negative (Negative) Urine Opiates Screen Neg (NEGATIVE) Urine Fentanyl Screen Neg (NEGATIVE) Urine Barbiturates Screen Neg (NEGATIVE) Urine Phencyclidine Screen Neg (NEGATIVE) Urine Amphetamines Screen Neg (NEGATIVE) Urine Benzodiazepines Screen Neg (NEGATIVE) Urine Cocaine Screen Neg (NEGATIVE) Urine Cannabinoids Screen Neg (NEGATIVE) Other Laboratory Tests 12/29/24 06:17 Brief Hx & Hospital Course: The patient is a 34-year-old female who denies past medical history presented to [facility] with complaint of abdominal pain. Patient reports symptoms progressively get worse with epigastric abdominal pain, radiating to her upper back, rating 7/10 numeric scale, associated with nausea, vomiting, diarrhea, getting worse that prompted this visit. Patient was seen and evaluated in the ED, laboratory data shows WBC 16.1, platelets 307, sodium 140, potassium 4.0, BUN 8, creatinine 0.71, GFR 114, glucose 102, calcium 9.0, lipase 32, troponin three, AST 180, ALT 89, blood pressure 130/78, heart rate 69, temperature 97.6 F, O2 saturation 98% on room air. 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 Patient was started on IV antibiotic regimen Zosyn, given morphine sulfate 4 mg IV x1, IV Zofran, please see medication orders section in the computer. On my assessment, patient denied chest pain, no headache, no dizziness, no shortness of breath, no abdominal pain, nausea or vomiting at this moment, no fever, no chills. Patient was admitted for further evaluation and medical management. She is admitted and received empiric antibiotics pain management and fluids. Patient counseled educated regarding diet exercise weight loss. Patient is already on Zepbound for weight loss. Patient's CT scan suggested abdominal fat infarction with a mild inflammatory changes. [place] causing her symptoms. Currently her abdominal pain and symptoms have resolved. She is tolerating soft diet. Pain is under control. Rest of her workup and labs are relatively normal. Therefore it is felt she could be safely discharged home with the continued outpatient treatment with the oral antibiotics and follow up with the PCP. I have talked to patient regarding her hospital diagnosis, CT results, ultrasound liver results, discharge medications, discharge instructions and follow-up plan of care. She has verbalized understanding of these and agree with the care plan as outlined. Operations or Procedures Exam: CT CT AB PEL WO CON-NO ORAL OR IV History: upper abd pain n/v/d Comparison Study: None Technique: Multidetector spiral CT of the abdomen was performed from lung bases to pubic symphysis. Imaging was performed without IV contrast. Axial, coronal and sagittal multiplanar reformats were obtained from the axial data set by the technologist. Radiation Dose : 1. Abdomen/Pelvis: CTDIvol 25 mGy, DLP 16 19 mGy*cm. Findings: Evaluation of solid organs is limited due to lack of intravenous contrast use. Lung Bases: Unremarkable. Liver: 5 low-attenuation. Gallbladder and Biliary Tree: Unremarkable Pancreas: Mild atrophy. Spleen: Unremarkable Adrenal Glands: Unremarkable Kidneys/Ureters: No urinary stone or obstruction. Bladder: Decompressed without evident abnormality. Pelvic Organs: Unremarkable uterus and left ovary. Bowel: Normal caliber without wall thickening. No evidence of appendicitis. Vasculature: The visualized abdominal aorta is normal in size and caliber. Evaluation of abdominal and pelvic vessels is limited due to lack of intravenous contrast. Lymphadenopathy: No mesenteric, retroperitoneal or periportal lymphadenopathy. Peritoneum: Trace soft tissue stranding in the right lower quadrant along the inferior aspect of the cecum (axial images 79-80 3/121, sagittal image 71/168). No ascites, free air, or fluid collection. Abdominal Wall: Small fat containing umbilical hernia. Musculoskeletal: No aggressive focal bony lesions, acute fractures or dislocation. IMPRESSION: 1. 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 Adjacent appendix, large bowel and right adnexa appear physiologic. 2. No other acute abdominal or pelvic findings. Radiation optimization: All CT scans at this facility use at least one of these dose optimization techniques: automated exposure control mA and/or kV adjustment per patient size (includes targeted exams where dose is matched to clinical indication) or iterative reconstruction. Condition at Discharge: Stable Final Diagnosis/Problems List Abdominal pain, possible colitis, morbid obesity with a BMI 46 Discharge Disposition: Home Discharge Instruct/Medications Diet: Consistent carbohydrate, Cardiac 2g Na,low cholest Activity: No Restrictions, As Tolerated Follow Up/Referral: Primary care physician next week follow up for abdominal pain and further management Medications: Take medications as prescribed Scheduled Cephalexin (Keflex Capsule), 1 CAP PO TID Metronidazole (Flagyl), 1 TAB PO TID Scheduled PRN Ibuprofen (Ibuprofen), 1 TAB PO TID PRN Discontinued Medications Nitrofurantoin Monohydrate Mac (Macrobid), 100 MG PO BID Discharge Statement: "Patient was advised to return to the ER or call 911 if any headaches, dizziness, shortness of breath, chest pain, abdominal pain, bleeding, fevers, or worsening of medical condition. Patient was counseled about treatment plan, medications, possible side effects, patientverbalized understanding. All questions were answered to the best of my ability. This discharge took greater then 30 minutes in planning, reviewing documentation, counseling the patient, and discussing with other team members." ASSESSMENT ASSESSMENT Assessment Abdominal pain, possible colitis, morbid obesity with a BMI 46 Date of Service: Dec 29, 2024 Billing Provider: NATIVIDAD RODRIGUEZ MD Common Visit Codes: 79810-MRS/OBS DISCH DAY <30MIN NATIVIDAD RODRIGUEZ MD Dec 29, 2024 13:58
== END 2024-12-29 17:26 | disposition home or self-care (01) | DRG 249 ==
LOC: ER 23:19 → OVERFLOW 12-28 07:20 → EAST 12-28 18:30
PROVIDERS: ADMIT Internal Medicine; ATTEND Internal Medicine
DX: A09 Infectious gastroenteritis and colitis, unspecified (principal); K55.069 Acute infarction of intestine, part and extent unspecified; E66.01 Morbid (severe) obesity due to excess calories; N39.0 Urinary tract infection, site not specified; Z68.42 Body mass index [BMI] 45.0-49.9, adult; Z79.899 Other long term (current) drug therapy; Z98.891 History of uterine scar from previous surgery
CPT/HCPCS: 36415; 74176; 76705; 80053; 80074; 80307; 81001; 81025; 83690; 84484; 85025; 96361; 96365; 96375; G0378; J2405; J2470; J2543

== ENCOUNTER 2025-01-21 18:10 | Emergency (ER) | payer MEDICAID ==
[~2025-01-21] VITALS: Ht 154.9 cm; Wt 108.0 kg
[~2025-01-21 18:10] MED LIST changes: +CEPH250C PO; +IBUP-1454 PO; +METR-344 PO; -NITR-87 PO
--- NOTE | 2025-01-21 19:21 | ED.PDOC ---
GI ASSESSMENT HPI Comments 34 year old female presents to the ED with a chief complaint of abdominal pain onset 1 week. Patient was seen in this ED on 12/28/24 for abdominal pain, was admitted and was discharged 12/29/24 with diagnosis of possible colitis. For the past week, patient noticed pain returned, radiates from epigastric region to back, is also experiencing LT flank pain, constipation. Denies any PMHx as well as fever, chills, nausea, vomiting, diarrhea, headache, dizziness, hematemesis, dysuria, hematuria. No other symptoms or modifying factors present at this time. Chief Complaint: Abdominal Pain Time Seen by MD: 18:50 Primary Care Provider: YOSEPH Lange Notes: Medications, Allergies Allergies: Coded Allergies: NO KNOWN ALLERGIES (Unverified , 01/30/13) Home Meds Active Scripts Ondansetron HCl (Ondansetron Hydrochloride) 8 Mg Tab, 8 MG PO Q6HP PRN, #30 TAB Prov:JAMIE FRIAS MD 01/21/25 Famotidine (PEPCID TABLET) 20 Mg Tb, 1 TAB PO BID PRN, #60 TAB 5 Refills Prov:JAMIE FRIAS MD 01/21/25 Sulfamethoxazole W/Trimethopri (Bactrim Ds Tablet) 1 Tab Tb, 1 TAB PO BID for 7 Days, #14 TAB Prov:JAMIE FRIAS MD 01/21/25 Ibuprofen (Ibuprofen) 600 Mg Tab, 1 TAB PO TID PRN, #30 TAB Prov:NATIVIDAD RODRIGUEZ MD 12/29/24 Metronidazole (Flagyl) 500 Mg Tab, 1 TAB PO TID, #20 TAB Prov:NATIVIDAD RODRIGUEZ MD 12/29/24 Cephalexin (KEFLEX CAPSULE) 250 Mg Cp, 1 CAP PO TID, #20 CAP Prov:NATIVIDAD RODRIGUEZ MD 12/29/24 Information Source: Patient Mode of Arrival: Ambulatory Timing: Weeks Duration: Since onset Prehospital treatment: None Quality: Sharp Vomitus: None Severity: Moderate Recent: None Recent Hx of: None Pain Location: Epigastric Modifying Factors: Nothing Associated sign and symptoms: Constipation, Abdominal Pain Past Medical History PAST MEDICAL HISTORY: Gallstones 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 History Family History Family History: Reviewed,noncontributory to illness, No family hx of Cancer, No family hx of DM, No family hx of Heart mel, No family hx of HTN, No family hx ofKidney mel, No family hx of Liver mel, No family hx of Lung mel, No family hx of Stroke Social History Smoker: Non-Smoker Alcohol: Denies ETOH Use Drugs: Denies Drug Use Lives In: Home Constitutional: denies: chills, diaphoresis, fatigue, fever, malaise, sweats, weakness, others EENTM: denies: blurred vision, double vision, ear bleeding, ear discharge, ear drainage, ear pain, ear ringing, eye pain, eye redness, hearing loss, mouth pain, mouth swelling, nasal discharge, nose bleeding, nose congestion, nose pain, photophobia, tearing, throat pain, throat swelling, voice changes, others Respiratory: denies: cough, hemoptysis, orthopnea, SOB at rest, shortness of breath, SOB with excertion, stridor, wheezing, others Cardiovascular: denies: chest pain, dizzy spells, diaphoresis, Dyspnea on exertion, edema, irregular heart beat, left arm pain, lightheadedness, palpitations, PND, syncope, others Gastrointestinal: reports: abdominal pain, constipated; denies: abdomen distended, blood streaked bowels, diarrhea, dysphagia, difficulty swallowing, hematemesis, melena, nausea, poor appetite, poor fluid intake, rectal bleeding, rectal pain, vomiting, others Genitourinary: reports: flank pain (LT); denies: abnormal vagina bleeding, burning, dyspareunia, dysuria, frequency, hematuria, incontinence, pain, , vagina discharge, urgency, others Neurological: denies: dizziness, fainting, headache, left sided numbness, left sided weakness, numbness, paresthesia, pre-existing deficit, right sided numbness, right sided weakness, seizure, speech problems, tingling, tremors, weakness, others Musculoskeletal: reports: back pain; denies: gout, joint pain, joint swelling, muscle pain, muscle stiffness, neck pain, others Integumetry: denies: bruises, change in color, change in hair/nails, dryness, laceration, lesions, lumps, rash, wounds, others Allergic/Immunocompromised: denies: Difficulty Healing, Frequent Infections, Hives, Itching, others Hematologic/Lymphatic: denies: anemia, blood clots, easy bleeding, easy bruising, swollen glands, others Endocrine: denies: excessive hunger, excessive sweating, excessive thirst, excessive urination, flushing, intolerance to cold, intolerance to heat, unexplained weight gain, unexplained weight loss, others Psychiatric: denies: anxiety, bipolar disorder, depression, hopeless, panic disorder, schizophrenia, sleepless, suicidal, others All Other Systems: Reviewed and Negative Physical Exam General Appearance: Normal HEENT: Normal ENT Inspection, Pharynx Normal, TMs Normal Neck: Full Range of Motion, Non-Tender, Normal, Normal Inspection Respiratory: Chest Non-Tender, Lungs Clear, No Accessory Muscle Use, No Respiratory Distress, Normal Breath Sounds Cardiovascular: No Edema, No JVD, No Murmur, No Gallop, Normal Peripheral Pulses, Regular Rate/Rhythm Breast Exam: Deferred Gastrointestinal: No Organomegaly, Non Tender, No Pulsatile Mass, Normal Bowel Sounds, Soft Genitalia: Deferred Pelvic: Deferred Rectal: Deferred Extremities: No calf tenderness, Normal capillary refill, Normal inspection, Normal range of motion, Non-tender, No pedal edema Musculoskeletal : Apperance: Normal Neurologic: Alert, open hearth helper II-XII nml as Tested, No Motor Deficits, Normal Affect, Normal Mood, No Sensory Deficits Cerebellar Function: Normal Reflexes: Normal Skin: Dry, Normal Color, Warm Lymphatic: No Adenopathy Was a procedure done? Was a procedure done?: No GI differential Dx Differential Diagnosis: Constipation, Diverticular disease, Gastritis/PUD, Gastroenteritis, GI hemorrhage, Pancreatitis, Kidney Stone, Other X-Ray, Labs, Meds, VS Vital Signs Date Time Temp Pulse Resp B/P (MAP) Pulse Ox O2 Delivery O2 Flow Rate FiO2 01/21/25 23:15 97.4 72 16 138/76 (96) 99 97.4 01/21/25 23:15 Room Air* 0 21 01/21/25 18:17 97.8 86 18 124/46 97 97.8 Lab Test 01/21/25 20:05 01/21/25 19:32 Range/Units Urine Color Yellow Yellow Urine Clarity Clear Clear Urine pH 7.0 5.0-9.0 Urine Specific [place] 1.029 1.001-1.035 Urine Protein Negative Negative Urine Ketones Negative Negative Urine Blood Negative Negative /uL Urine Nitrite Negative Negative Urine Bilirubin Negative Negative Urine Urobilinogen Normal Negative mg/dL Urine Leukocyte Esterase 2+ Negative /uL Urine RBC 8 0 - 4 /hpf Urine Microscopic WBC 12 H 0-5 /HPF Urine Squamous Epithelial Cells Few <5 /hpf Urine Bacteria None seen None Seen /hpf Urine Mucus Few None Seen Urine Glucose Normal Normal mg/dL Urine Test Negative Negative White Blood Count 10.5 4.4-10.8 10^3/uL Red Blood Count 5.35 H 4.0-5.20 10^6/uL Hemoglobin 14.6 12.2-16.2 g/dL Hematocrit 43.4 36.0-46.0 % Mean Corpuscular Volume 81.1 80.0-100.0 fL Mean Corpuscular Hemoglobin 27.3 L 28.0-32.0 pg Mean Corpuscular Hemoglobin Concent 33.7 32.0-36.0 g/dL Red Cell Distribution Width 13.7 11.8-14.3 % Platelet Count 296 140-450 10^3/uL Mean Platelet Volume 9.0 6.9-10.8 fL Neutrophils (%) (Auto) 57.8 37.0-80.0 % Lymphocytes (%) (Auto) 32.3 10.0-50.0 % Monocytes (%) (Auto) 6.7 0.0-12.0 % Eosinophils (%) (Auto) 2.8 0.0-7.0 % Basophils (%) (Auto) 0.4 0.0-2.0 % Neutrophils # (Auto) 6.1 1.6-8.6 10 ^3/uL Lymphocytes # (Auto) 3.4 0.4-5.4 10 ^3/uL Monocytes # (Auto) 0.7 0-1.3 10 ^3/uL Eosinophils # (Auto) 0.3 0-0.8 10 ^3/uL Basophils # (Auto) 0 0-0.2 10 ^3/uL Nucleated Red Blood Cells 0.1 % Sodium Level 138 136-145 mmol/L Potassium Level 3.5 3.5-5.1 mmol/L Chloride Level 103 98-107 mmol/L Carbon Dioxide Level 27 20-31 mmol/L Anion Gap 8 5-15 Blood Urea Nitrogen 6 L 9-23 mg/dL Creatinine 0.78 0.550-1.02 mg/dL Glomerular Filtration Rate Calc 102 >90 mL/min BUN/Creatinine Ratio 7.7 L 10.0-20.0 Serum Glucose 82 74-106 mg/dL Calcium Level 9.1 8.7-10.4 mg/dL Total Bilirubin 0.4 0.2-1.0 mg/dL Aspartate Amino Transferase (AST) 26 13-40 U/L Alanine Aminotransferase (ALT) 23 7-40 U/L Alkaline Phosphatase 89 46-116 U/L Total Protein 7.8 5.7-8.2 g/dL Albumin 4.5 3.2-4.8 g/dL Lipase 29 12-53 U/L Current Medications Medications (Trade) Dose Ordered Sig/Kristal Route Start Time Stop Time Status Last Admin Ondansetron HCl (Zofran Po) 4 mg ONCE ONCE PO 01/21/25 19:30 01/21/25 19:31 DC 01/21/25 23:17 Al Hydrox/Mg Hydrox/Simethicone (Maalox Plus) 30 ml ONCE ONCE PO 01/21/25 19:30 01/21/25 19:31 DC 01/21/25 23:17 Famotidine (Pepcid Tablet) 40 mg ONCE ONCE PO 01/21/25 19:30 01/21/25 19:31 DC 01/21/25 23:17 Trimethoprim/ Sulfamethoxazole (Bactrim Ds Tablet) 1 tab ONCE ONCE PO 01/21/25 21:30 01/21/25 21:31 DC 01/21/25 23:17 [place] [address] Ph: [phone] DIAGNOSTIC IMAGING Diagnostic Imaging Report : [id number] Signed PATIENT: THI MURRAY ACCT: [id number] UNIT: [id number] : 1990 LOC: ER ROOM / BED: / AGE / SEX: 34 / F ADM STATUS: REG ER SERVICE 18 ORDERING PHYSICIAN: JAMIE FRIAS MD PROCEDURE(s): ABPL - CT AB PEL WO CON-NO ORAL OR IV REASON: left flank pain ORDER NUMBER(s): [id number], ACCESSION NUMBER(s): [id number] Exam: CT CT AB PEL WO CON-NO ORAL OR IV History: left flank pain Comparison Study: CT CT AB PEL WO CON-NO ORAL OR IV on DOS: 12/28/24 TECHNIQUE: Multidetector CT of the abdomen and pelvis was performed from lung bases to pubic symphysis. Imaging was performed without IV contrast. Axial, coronal, and sagittal multiplanar reformats were obtained from the axial data set by the technologist. RADIATION DOSE: DLP 1417.28 mGy.cm; CTDI vol 26.25 mGy. Findings: Lungs: The lung bases are clear. Heart: No cardiomegaly or pericardial effusion. Liver: Unremarkable. Gallbladder: Unremarkable. Spleen: Unremarkable Pancreas: Unremarkable Adrenals: Unremarkable Kidneys: Unremarkable. No nephroureterolithiasis. GI tract: Unremarkable : 4.1 cm right and 3.0 cm left ovarian cysts. Unremarkable. Vasculature: Unremarkable Lymphadenopathy: Absent Peritoneum: No ascites Musculoskeletal: Unremarkable Soft tissues: Small fat containing periumbilical hernia. Unremarkable Impression: 1. No acute abdominopelvic abnormalities. 2. No nephroureterolithiasis. ATED BY: MCKENZIE ARREGUIN DO DICTATED DATE/TIME: 01/21/252028 SIGNED BY: MCKENZIE ARREGUIN DO SIGNED DATE/TIME: 01/21/252028 CC: Time of 1ST Reevaluation: 19:20 Reevaluation 1ST: Unchanged Patient Education/Counseling: Diagnosis, Treatment Family Education/Counseling: No Family Present SEPSIS Sepsis Screen Date sepsis recognized/suspect: Jan 21, 2025 Time Sepsis recognized/suspect: 1818 Recent Procedure: No On Antibiotic Therapy: No Respiratory Rate >20: No Heart Rate >90: No Temp<36 C (96.8 F) or >38.3 C: No SBP <90 or MAP <65 mmHG: No New Acute Mental Status Change: No Is the patient on CPAP, BIPAP,: No Physician Orders Ct Ab Pel Wo Con-No Oral Or Iv (01/21/25 19:19) Vital Signs Date Time Temp Pulse Resp B/P (MAP) Pulse Ox O2 Delivery O2 Flow Rate FiO2 01/21/25 23:15 97.4 72 16 138/76 (96) 99 97.4 01/21/25 23:15 Room Air* 0 21 01/21/25 18:17 97.8 86 18 124/46 97 97.8 Laboratory Tests Test 01/21/25 19:32 White Blood Count 10.5 10^3/uL (4.4-10.8) Medications Medications Dose Ordered Sig/Kristal Route Start Time Stop Time Status Last Admin Dose Admin Al Hydrox/Mg Hydrox/Simethicone 30 ml ONCE ONCE PO 01/21/25 19:30 01/21/25 19:31 DC 01/21/25 23:17 Famotidine 40 mg ONCE ONCE PO 01/21/25 19:30 01/21/25 19:31 DC 01/21/25 23:17 Ondansetron HCl 4 mg ONCE ONCE PO 01/21/25 19:30 01/21/25 19:31 DC 01/21/25 23:17 Trimethoprim/ Sulfamethoxazole 1 tab ONCE ONCE PO 01/21/25 21:30 01/21/25 21:31 DC 01/21/25 23:17 Departure 1 Departure Time of Disposition: 21:00 Impression: Primary Impression: Abdominal pain Additional Impressions: LUQ abdominal pain UTI (urinary tract infection) Disposition: HOME / SELF CARE / HOMELESS Condition: Stable e-Prescriptions Ondansetron HCl (Ondansetron Hydrochloride) 8 Mg Tab 8 MG PO Q6HP PRN, #30 TAB Prov: JAMIE FRIAS MD 01/21/25 Famotidine (PEPCID TABLET) 20 Mg Tb 1 TAB PO BID PRN, #60 TAB 5 Refills Prov: JAMIE FRIAS MD 01/21/25 Sulfamethoxazole W/Trimethopri (Bactrim Ds Tablet) 1 Tab Tb 1 TAB PO BID for 7 Days, #14 TAB Prov: JAMIE FRIAS MD 01/21/25 Discharged With: Self Critical Care Note Critical Care Time?: No Stability Stability form required: No I personally scribed for JAMIE FRIAS MD ([email or web address]) on 01/21/25 at 19:21. Electronically submitted by Gabriela Arenas ([email or web address]). I personally scribed for JAMIE FRIAS MD ([email or web address]) on 01/21/25 at 20:52. Electronically submitted by Gabriela Arenas ([email or web address]). JAMIE FRIAS MD Jan 21, 2025 19:21
[2025-01-21 19:43] LABS: Hematocrit 43.4 % (36.0-46.0); Hemoglobin 14.6 g/dL (12.2-16.2); Mean Corpuscular Hemoglobin 27.3 pg (28.0-32.0); Mean Corpuscular Volume 81.1 fL (80.0-100.0); Nucleated Red Blood Cells % 0.1 %
[2025-01-21 19:56] LABS: Alanine Aminotransferase 23 U/L (7-40); Albumin 4.5 g/dL (3.2-4.8); Alkaline Phosphatase 89 U/L (46-116); Anion Gap 8 (5-15); BUN/Creatinine Ratio 7.7 (10.0-20.0); Calcium 9.1 mg/dL (8.7-10.4); Carbon Dioxide 27 mmol/L (20-31); Chloride 103 mmol/L (98-107); Glucose 82 mg/dL (74-106); Lipase 29 U/L (12-53); Potassium 3.5 mmol/L (3.5-5.1); Sodium 138 mmol/L (136-145); Total Protein 7.8 g/dL (5.7-8.2)
[2025-01-21 19:57] LABS: Bilirubin, Total 0.4 mg/dL (0.2-1.0); Blood Urea Nitrogen 6 mg/dL (9-23)
--- NOTE | 2025-01-21 20:31 | DVH ---
Exam: CT CT AB PEL WO CON-NO ORAL OR IV History: left flank pain Comparison Study: CT CT AB PEL WO CON-NO ORAL OR IV on DOS: 12/28/24 TECHNIQUE: Multidetector CT of the abdomen and pelvis was performed from lung bases to pubic symphysi s. Imaging was performed without IV contrast. Axial, coronal, and sagittal multiplanar reformats were obtained from the axial data set by the technologist. RADIATION DOSE: DLP 1417.28 mGy.cm; CTDI vol 26.25 mGy. Findings: Lungs: The lung bases are clear. Heart: No cardiomegaly or pericardial effusion. Liver: Unremarkable. Gallbladder: Unremarkable. Spleen: Unremarkable Pancreas: Unremarkable Adrenals: Unremarkable Kidneys: Unremarkable. No nephroureterolithiasis. GI tract: Unremarkable : 4.1 cm right and 3.0 cm left ovarian cysts. Unremarkable. Vasculature: Unremarkable Lymphadenopathy: Absent Peritoneum: No ascites Musculoskeletal: Unremarkable Soft tissues: Small fat containing periumbilical hernia. Unremarkable Impression: 1. No acute abdominopelvic abnormalities. 2. No nephroureterolithiasis.
[2025-01-21 21:06] LABS: Urine Protein, UAD Negative (Negative)
[2025-01-21] MEDS ORDERED: BACDST PO (21:26)
[2025-01-21] MEDS ORDERED: ONDA-180 PO (21:26)
[2025-01-21] MEDS ORDERED: FAMO20TA10 PO (21:26)
[2025-01-21 23:15] VITALS: BP 138/76; PULSE 72; RESP 16; TEMP 97.4; O2SAT 99
[2025-01-21] MEDS: FAMOTIDINE 20 MG TAB PO ONE (23:17)
[2025-01-21] MEDS: MAALOX PLUS or MAALOX 30 ML PO ONE (23:17)
[2025-01-21] MEDS: ONDANSETRON ODT 4 MG TAB PO ONE (23:17)
[2025-01-21] MEDS: SULFAMETHOX W/TRIMETH(800/160MG) DS TAB PO ONE (23:17)
== END 2025-01-21 23:28 | disposition home or self-care (01) ==
LOC: ER 18:14
DX: N39.0 Urinary tract infection, site not specified (principal); Z79.899 Other long term (current) drug therapy; Z98.890 Other specified postprocedural states
CPT/HCPCS: 36415; 74176; 80053; 81001; 81025; 83690; 85025; 99284; Q0162